=== PATIENT | male | born 2000 | race African-American/Black ===

== ENCOUNTER 2024-04-27 09:19 | Emergency (ER) | payer OTHER ==
[~2024-04-27] VITALS: Ht 188 cm; Wt 98.6 kg
[2024-04-27 09:24] VITALS: TEMP 98.6
[2024-04-27] MEDS ORDERED: NS 1,000 ML IV ONE (09:45)
[2024-04-27] MEDS ORDERED: Ondansetron 4 MG/2 ML VIAL IV ONE (09:45)
[2024-04-27 09:47] LABS: BASO % 0.9 % (0.0-2.0); EOS % 0.9 % (0.0-4.0); GRAN # 1.9 K/mm3 (1.4-6.5); GRAN % 42.4 % (42.2-75.2); HEMATOCRIT 41.2 % (42.0-52.0); HEMOGLOBIN 13.6 g/dl (13.5-18.0); LYMPH % 44.2 % (20.0-51.0); MEAN CELL VOLUME 75 fl (80.0-100.0); MEAN CORPUSCULAR HEMOGLOBIN 25 pg (27-31); MEAN CORPUSCULAR HGB CONC 33 g/dl (33.0-37.0); MEAN PLATELET VOLUME 10.1 fl (7.4-10.4); MONO # 0.5 K/mm3 (0.1-0.6); MONO % 11.2 % (1.7-9.3); PLATELET COUNT 338 K/mm3 (130-400); RED BLOOD COUNT 5.49 M/mm3 (4.20-5.60); REDCELL DISTRIBUTION WIDTH-CV 12.3 % (11.5-14.5)
[2024-04-27 10:07] LABS: ALBUMIN 4.8 g/dL (3.5-5.0); BILIRUBIN,TOTAL 0.9 mg/dL (0.2-1.2); C-REACTIVE PROTEIN 0.08 mg/dL (0.00-0.50); CALCIUM 10.4 mg/dL (8.4-10.2); CREATININE, serum 1.05 mg/dL (0.72-1.25); MAGNESIUM 1.8 mg/dL (1.6-2.6); POTASSIUM 3.3 mEq/L (3.5-4.5); TOTAL PROTEIN 8.3 g/dl (6.2-8.1)
[2024-04-27] MEDS ORDERED: ZOFRAN ODT4 MG PO (11:05)
[2024-04-27] MEDS ORDERED: LEVSIN 0.10.125 MG/T PO (11:05)
[2024-04-27 11:14] VITALS: BP 145/86; PULSE 75
[2024-04-27] MEDS ORDERED: Hyoscyamine 0.125 MG Sublingual TAB SL ONE (11:15)
== END 2024-04-27 11:18 | disposition home or self-care (01) ==
LOC: COL.ER 09:19
PROVIDERS: Emergency Medicine
DX: R10.84 Generalized abdominal pain (principal); R11.2 Nausea with vomiting, unspecified; R19.7 Diarrhea, unspecified
CPT/HCPCS: J2405; J7030

== ENCOUNTER 2024-05-02 07:36 | Emergency (ER) | payer OTHER ==
[~2024-05-02] VITALS: Ht 188 cm; Wt 95.9 kg
[~2024-05-02 07:36] MED LIST: LEVSIN 0.10.125 MG/T PO; ZOFRAN ODT4 MG PO
[2024-05-02 07:39] VITALS: TEMP 98.2
[2024-05-02] MEDS ORDERED: NS 1,000 ML IV ONE ×2 (08:15→10:00)
[2024-05-02] MEDS ORDERED: Ondansetron 4 MG/2 ML VIAL IV ONE (08:15)
[2024-05-02 08:27] LABS: BASO % 0.9 % (0.0-2.0); EOS # 0.1 K/mm3 (0.0-0.7); EOS % 1.6 % (0.0-4.0); GRAN # 1.3 K/mm3 (1.4-6.5); GRAN % 29.7 % (42.2-75.2); HEMATOCRIT 43.3 % (42.0-52.0); HEMOGLOBIN 14.4 g/dl (13.5-18.0); LYMPH # 2.4 K/mm3 (1.2-3.4); LYMPH % 56.3 % (20.0-51.0); MEAN CELL VOLUME 75 fl (80.0-100.0); MEAN CORPUSCULAR HEMOGLOBIN 25 pg (27-31); MEAN CORPUSCULAR HGB CONC 33 g/dl (33.0-37.0); MEAN PLATELET VOLUME 10.8 fl (7.4-10.4); MONO # 0.5 K/mm3 (0.1-0.6); MONO % 10.6 % (1.7-9.3); PLATELET COUNT 344 K/mm3 (130-400); RED BLOOD COUNT 5.79 M/mm3 (4.20-5.60); REDCELL DISTRIBUTION WIDTH-CV 12.5 % (11.5-14.5)
[2024-05-02 08:41] LABS: ALBUMIN 4.7 g/dL (3.5-5.0); BILIRUBIN,TOTAL 0.8 mg/dL (0.2-1.2); CREATININE, serum 1.1 mg/dL (0.72-1.25); POTASSIUM 3.2 mEq/L (3.5-4.5); TOTAL PROTEIN 8.1 g/dl (6.2-8.1)
[2024-05-02] MEDS ORDERED: Iohexol 300 - 100 ML VIAL IV ONE (08:59)
[2024-05-02] MEDS ORDERED: NS 100 ML IV SCH (09:04)
[2024-05-02 10:16] LABS: PH 5.5 (5.0-8.5); URINE APPEARANCE CLEAR (CLEAR/HAZY); URINE BLOOD NEGATIVE (NEGATIVE); URINE COLOR YELLOW (YELLOW); URINE GLUCOSE NEGATIVE (NEGATIVE); URINE KETONE 2+ (NEGATIVE); URINE NITRATE NEGATIVE (NEGATIVE); URINE PROTEIN(semi-quant) NEGATIVE (NEGATIVE)
[2024-05-02 10:31] LABS: COLLECTION METHOD CLEAN CATCH
[2024-05-02 13:07] VITALS: BP 118/76; PULSE 69
[2024-05-02] MEDS ORDERED: KLOR-CON20 MEQ PO (13:16)
[2024-05-02] MEDS ORDERED: ZOFRAN ODT4 MG PO (13:18)
[2024-05-02] MEDS ORDERED: NORCO 325 MG-51 TAB PO (13:18)
== END 2024-05-02 13:28 | disposition home or self-care (01) ==
LOC: COL.ER 07:36
PROVIDERS: Family Medicine
DX: K52.9 Noninfective gastroenteritis and colitis, unspecified (principal)
CPT/HCPCS: J2405; J7030; Q9967